=== PATIENT | male | born 1980 | race Caucasian/White ===

== ENCOUNTER 2016-07-18 13:54 | Emergency (ER) | payer SELFPAY ==
[2016-07-18 14:08] VITALS: BP 147/98
--- NOTE | 2016-07-18 14:57 | CT ---
Head CT Technique: Multiple axial sections through the brain were obtained. Intravenous contrast was not utilized. Comparison: No previous intracranial imaging. Findings: Ventricles along with basal cisterns and sulci over the convexities are within normal limits for the patient's age. No abnormal parenchymal densities are seen. No evidence of intracranial hemorrhage. No midline shift or mass effect is seen. Bone window settings were reviewed which shows the visualized sinuses to appear clear. No acute calvarial abnormality is seen. Impression: 1. No acute abnormality is identified on noncontrast head CT study. Diagnostic code #1
--- NOTE | 2016-07-18 15:05 | EDM.PDOC ---
ED HPI GENERAL MEDICAL PROBLEM - General Chief Complaint: Neurological Problem Stated Complaint: HX OF SEIZURES/HAD ONE EARLIER THIS MORNING Time Seen by Provider: 07/18/16 14:03 Source of Information: Reports: Patient, Other (Hayde Nelson, HR at patient's work) History Limitations: Reports: No Limitations - History of Present Illness INITIAL COMMENTS - FREE TEXT/NARRATIVE: The patient was brought to the ED after suffering a seizure at work. According to Hayde Omar, an auto claim representative at the patient's work, who witnessed the event, the patient fell to the ground. His eyes rolled back and he was shaking. He developed sonorous breathing. These symptoms persisted for more than 5 minutes, and when they stopped, the patient was days for some time thereafter. EMS was called, they evaluated the patient, but he refused transport. Ms. Nelson then brought the patient to the ED for a medical clearance to return to work. The patient states that he does not recall anything about the seizure itself. He states that he did not bite his tongue or lose continence of bowel or bladder. 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 The cause of his seizures is not known. The patient is on Topamax. He states that he has not skipped any doses recently, but states that he could have sleep deprivation, as he went to bed around midnight last night, instead of his usual 10 PM. No recent alcohol or drugs. No recent illnesses. The patient states that his last seizure was more than 5 years ago. He is unable to estimate the approximate frequency. He states that the last imaging study of his head was more than 5 years ago. The patient's Neurologist is in [place], although the patient states that he moved to this area about 4 months ago. He does not have a PCP. 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[employer]) ED ROS GENERAL - Review of Systems Review Of Systems: See Below Constitutional: Reports: No Symptoms HEENT: Reports: No Symptoms Respiratory: Reports: No Symptoms Cardiovascular: Reports: No Symptoms Endocrine: Reports: No Symptoms GI/Abdominal: Reports: No Symptoms : Reports: No Symptoms Musculoskeletal: Reports: No Symptoms Skin: Reports: No Symptoms Neurological: Reports: No Symptoms Psychiatric: Reports: No Symptoms Hematologic/Lymphatic: Reports: No Symptoms Immunologic: Reports: No Symptoms - Physical Exam Exam: See Below Exam Limited By: No Limitations General Appearance: Alert, WD/WN, No Apparent Distress Eye Exam: Bilateral Eye: EOMI, Normal Inspection, PERRL Ears: Normal External Exam, Normal Canal, Hearing Grossly Normal, Normal TMs Nose: Normal Inspection, Normal Mucosa, No Blood Throat/Mouth: Normal Inspection, Normal Lips, Normal Teeth, Normal Gums, Normal Oropharynx, Normal Voice, No Airway Compromise Head Exam: Atraumatic, Normocephalic, Other (Well-healed scar over the right eyebrow) Neck: Normal Inspection, Supple, Non-Tender, Full Range of Motion Respiratory/Chest: No Respiratory Distress, Lungs Clear, Normal Breath Sounds, No Accessory Muscle Use Cardiovascular: Normal Peripheral Pulses, Regular Rate, Rhythm, No Edema, No Gallop, No JVD, No Murmur, No Rub GI/Abdominal: Normal Bowel Sounds, Soft, Non-Tender, No Organomegaly, No Distention, No Abnormal Bruit, No Mass (Male) Exam: Deferred Rectal (Males) Exam: Deferred Neuro Exam (Abbreviated): Alert, Oriented, CN II-XII Intact, Normal Cognition, No Motor/Sensory Deficits Back Exam: Normal Inspection, Full Range of Motion, NT Extremities: Normal Inspection, Normal Range of Motion, No Pedal Edema, Normal Capillary Refill Psychiatric: Normal Affect Skin Exam: Warm, Dry, Intact, Normal Color, No Rash Course - Vital Signs Last Recorded V/S: Last Vital Signs Temp 37.0 C 07/18/16 14:02 Pulse 120 H 07/18/16 14:02 Resp 16 07/18/16 14:02 BP 147/98 H 07/18/16 14:02 Pulse Ox 98 07/18/16 14:02 - Orders/Labs/Meds Labs: Laboratory Tests 07/18/16 07/18/16 Range/Units 14:22 14:30 WBC 9.59 H (4.23-9.07) K/mm3 RBC 5.24 (4.63-6.08) M/mm3 Hgb 16.0 (13.7-17.5) gm/L Hct 46.8 (40.1-51.0) % MCV 89.3 (79.0-92.2) fl MCH 30.5 (25.7-32.2) pg MCHC 34.2 (32.2-35.5) g/dl RDW Std Deviation 40.7 (35.1-43.9) fL Plt Count 275 (163-337) K/mm3 MPV 9.6 (9.4-12.3) fl Neutrophils % (Manual) 84 H (40-60) % Band Neutrophils % 0 (0-10) % Lymphocytes % (Manual) 11 L (20-40) % Atypical Lymphs % 2 % Monocytes % (Manual) 3 (2-10) % Eosinophils % (Manual) 0 L (0.8-7.0) % Basophils % (Manual) 0 L (0.2-1.2) Platelet Estimate Adequate Plt Morphology Comment Normal RBC Morph Comment Normal Sodium 141 (136-145) mEq/L Potassium 4.1 (3.5-5.1) mEq/L Chloride 105 (98-107) mEq/L Carbon Dioxide 26 (21-32) mEq/L Anion Gap 14.1 (5-15) BUN 14 (7-18) mg/dL Creatinine 1.2 (0.7-1.3) mg/dL Est Cr Clr Drug Dosing TNP Estimated GFR (MDRD) > 60 (>60) mL/min BUN/Creatinine Ratio 11.7 L (14-18) Glucose 123 H (74-106) mg/dL Calcium 9.2 (8.5-10.1) mg/dL Phosphorus 2.0 L (2.6-4.7) mg/dL Magnesium 2.2 (1.8-2.4) mg/dl Total Bilirubin 0.8 (0.2-1.0) mg/dL AST 31 (15-37) U/L ALT 57 (16-63) U/L Alkaline Phosphatase 78 (46-116) U/L Total Protein 8.3 H (6.4-8.2) g/dl Albumin 4.3 (3.4-5.0) g/dl Globulin 4.0 gm/dL Albumin/Globulin Ratio 1.1 (1-2) Meds: Medications Discontinued Medications Generic Name Dose Route Start Last Admin Trade Name Layne PRN Reason Stop Dose Admin Sodium Phosphate 250 mg 07/18/16 15:09 07/18/16 15:20 Neutra-Phos PO 07/18/16 15:10 250 mg ONETIME ONE Administration - Radiology Interpretation Free Text/Narrative:: CT of the head without contrast is read by Dr. Olmos as: 1. No acute abnormality is identified on noncontrast head CT study. - Re-Assessments/Exams Free Text/Narrative Re-Assessment/Exam: 07/18/16 15:10 The patient's phosphate level is found to be low at 2.0. Unfortunately, serum phosphate level is a poor reflection of the patient's whole-body phosphate level , nevertheless, low serum phosphate is known to lower seizure threshold. I have therefore ordered a single dose of oral Neutra-Phos. 07/18/16 16:03 Test results discussed with the patient. Other than a low phosphate, the remainder of the patient's workup is unremarkable. I will discharge him home with a note that he may return to work, however, the patient is not to drive until cleared to do so by a Neurologist. Departure - Departure Time of Disposition: 16:04 Disposition: Home, Self-Care 01 Condition: fair Clinical Impression: Epileptic seizure - Discharge Information Referrals: PCP,None [Primary Care Provider] - Venu Cohen MD [Ordering Only Provider] - Forms: ED Department Discharge, Return to Work/School Form Additional Instructions: You were seen in the emergency room after suffering a seizure at work. Workup in the ER included blood work and a CT scan of your head. Your workup found that your phosphate level was low at 2.0. While it may not have been responsible for your seizure, low phosphate is known to lower seizure threshold in patients who have seizure disorders. You were given some oral phosphate replacement. You may return to work as soon as you feel well enough, however, YOU ARE NOT TO DRIVE UNTIL CLEARED BY NEUROLOGY. Follow up with the Neurologist Dr. Cohen at the next available appointment. If any other problems, please do not hesitate to return to the ER.
[2016-07-18] MEDS ORDERED: Phosphorus #1 250 MG Tab PO ONE (15:09)
== END 2016-07-18 16:15 | disposition home or self-care (01) ==
LOC: JD.ED 13:54
DX: G40.909 Epilepsy, unspecified, not intractable, without status epilepticus (principal)
CPT/HCPCS: 36415; 70450; 80053; 83735; 84100; 85025; 99284; A9270